=== PATIENT | male | born 1975 | race Caucasian/White ===

== ENCOUNTER 2020-01-29 01:44 | Emergency (ER) | payer BC ==
--- NOTE | 2020-01-29 02:50 | ED ---
Influenza-Like Illness - HPI Summary HPI Summary: 44 year old M arriving via private car to [facility] complains of nasal congestion, nonproductive cough, shortness of breath aggravated by exertion starting Wed PM. No fever, nausea/vomiting/diarrhea, decreased appetite. Symptoms aggravated by exertion. Symptoms alleviated by nothing. Medications reviewed. Allergies noted. No cardiac or respiratory hx. Recent travel to [place] 3 weeks ago. He is a after school driver. - History of Current Complaint Chief Complaint: EDFluSymptoms Hx Obtained From: Patient Onset/Duration: Lasting Hours, Still Present - Allergy/Home Medications Allergies/Adverse Reactions: Allergies Allergy/AdvReac Type Severity Reaction Status Date / Time shellfish derived Allergy Anaphylatic Verified 01/29/20 01:47 Shock Home Medications: Home Medications Advil 600 mg 02/02/15 [History Confirmed 02/02/15] PMH/Surg Hx/FS Hx/Imm Hx Endocrine/Hematology History: Denies: Hx Diabetes, Hx Thyroid Disease Cardiovascular History: Denies: Hx Hypertension Respiratory History: Denies: Hx Asthma, Hx Chronic Obstructive Pulmonary Disease (COPD) GI History: Denies: Hx Ulcer - Surgical History Surgery Procedure, Year, and Place: eye surgery as child. vascectomy 2014 Infectious Disease History: No Infectious Disease History: Denies: Hx Hepatitis, Hx Human Immunodeficiency Virus (HIV), Traveled Outside the [place] in Last 30 Days - Social History Alcohol Use: Occasionally Alcohol Amount: 1 - 2x/wk Substance Use Type: Reports: None Hx Tobacco Use: Yes Smoking Status (MU): Former Smoker Review of Systems Negative: Fever ENT: Other - nasal congestion Positive: Shortness Of Breath, Cough Gastrointestinal: Negative - decreased appetite Negative: Vomiting, Diarrhea, Nausea All Other Systems Reviewed And Are Negative: Yes Physical Exam - Summary Physical Exam Summary: Appearance: Well-appearing, Well-nourished, lying in bed comfortably Skin: Warm, dry, no obvious rash Eyes: sclera anicteric, no conjunctival pallor HENT: mucous membranes moist, pharynx appears normal Neck: Supple, nontender Respiratory: Clear to auscultation, no signs of respiratory distress Cardiovascular: Normal S1, S2. No murmurs. Normal distal pulses in tibial and radial bilaterally. Abdomen: Soft, nontender, normal active bowel sounds present Musculoskeletal: Normal, Strength/ROM Intact Neurological: A&Ox3, awake and alert, mentation is normal, speech is fluent and appropriate Psychiatric: affect is normal, does not appear anxious or depressed Triage Information Reviewed: Yes Vital Signs On Initial Exam: Initial Vitals Temp Pulse Resp BP Pulse Ox 97.8 F 105 18 150/105 97 01/29/20 01:45 01/29/20 01:45 01/29/20 01:45 01/29/20 01:45 01/29/20 01:45 Vital Signs Reviewed: Yes Procedures - Sedation Patient Received Moderate/Deep Sedation with Procedure: No Diagnostics - Vital Signs Vital Signs Temp Pulse Resp BP Pulse Ox 01/29/20 01:45 97.8 F 105 18 150/105 97 - Laboratory Lab Statement: Any lab studies that have been ordered have been reviewed, and results considered in the medical decision making process. Flu Symptom Course/Dx - Course Course Of Treatment: 44 y/o M without any significant PMHx c/o nasal congestion , nonproductive cough, shortness of breath aggravated by exertion starting Wed 3 /11 PM. Physical exam unremarkable. Patient reports recent travel. However, this was 3 weeks ago. He likely has an upper respiratory infection. Patient will be discharged home with follow up from his primary care provider if needed. Patient was instructed to return to Emergency Department for new or worsening symptoms. Patient understands and is agreeable to this plan. - Diagnoses Provider Diagnoses: Upper respiratory infection Discharge ED - Sign-Out/Discharge Documenting (check all that apply): Patient Departure - Discharge Plan Condition: Good Disposition: HOME Patient Education Materials: Upper Respiratory Infection (ED) Referrals: Edu Tinajero MD [Primary Care Provider] - If Needed - Billing Disposition and Condition Condition: GOOD Disposition: Home - Attestation Statements Document Initiated by Scribe: Yes Documenting Scribe: Geri Hernandez Provider For Whom Hellen is Documenting (Include Credential): Aurelio Morelos MD Scribe Attestation: Geri Milan, scribed for Aurelio Morelos MD on 01/30/20 at 0233. Scribe Documentation Reviewed: Yes Provider Attestation: The documentation as recorded by the scribeGeri accurately reflects the service I personally performed and the decisions made by me, Aurelio Morelos MD Status of Scribe Document: Viewed
[2020-01-29 03:07] VITALS: BP 133/91
== END 2020-01-29 03:10 | disposition home or self-care (01) ==
LOC: ED 01:44
DX: J06.9 Acute upper respiratory infection, unspecified (principal); R09.81 Nasal congestion; R06.02 Shortness of breath; Z87.891 Personal history of nicotine dependence; R05 Cough
CPT/HCPCS: 99282